=== PATIENT | male | born 1945 | race Caucasian/White ===

== ENCOUNTER → 2017-08-20 06:38 | Outpatient (CLI) | payer MEDICARE, SELFPAY ==
--- NOTE | 2017-08-20 06:43 | CT_ITS ---
STUDY: CT ABDOMEN WITH AND WITHOUT CONTRAST REASON FOR EXAM: Male, 72 years old. Renal cyst seen on prior MRI examination. RADIATION DOSAGE (If Supplied By Facility): CTDIvol = ( 15.6 ) mGy, DLP = ( 1580.15 ) mGycm TECHNIQUE: Transaxial images were obtained pre and post I.V. administration of 100 ml of Isovue 300, and without oral contrast. Sagittal and coronal images were reconstructed. Individualized dose optimization techniques were used for this CT. COMPARISON: None. FINDINGS: Minimal degree of dependent right basilar atelectasis. The visualized portions of the heart are within normal limits. There is decreased attenuation of the liver consistent with steatosis. Normal gallbladder and extrahepatic biliary system. Normal spleen. Normal pancreas. Normal bilateral adrenal glands. There is a 2 mm calculus in the upper pole of the right kidney. Tiny calculus in the mid lower poles of the right kidney. There is a 2.8 cm x 3.8 cm right parapelvic cyst. Punctate calculus in the mid lower pole of the left kidney. There is a 1.2 cm x 0.9 cm cyst in the posterior midportion of the left kidney. There is also evidence of a 3.9 cm x 3.9 cm cyst in the inferior portion of the left kidney. There is a small hiatal hernia. Normal small intestine. Normal colon. The appendix is visualized and appears normal. There is scattered atherosclerotic calcification of the abdominal aorta, without a demonstrated aneurysm. Normal inferior vena cava. Normal retroperitoneum. Normal abdominal wall. Grade 1 anterolisthesis of L5 on S1 with spondylolysis of the pars interarticularis of the L5 vertebrae as well as disc space narrowing and disc degeneration. CT/Abdomen W/WO IV Contrast IMPRESSION: Bilateral renal cysts. Small bilateral nonobstructive intrarenal calculi. Electronically Signed: Tommie Baez MD at 13:14 EDT Tel [phone], Service support ,
[2017-08-20 06:56] LABS: CREATININE FINGERSTICK < 0.6 mg/dL (0.70-1.30); EGFR FINGERSTICK > 60.0000 mL/min (>60)
== END ==
PROVIDERS: Family Provider Family Medicine; PCP Family Medicine; Visit Provider Family Medicine
DX: N28.1 Cyst of kidney, acquired (principal)
CPT/HCPCS: 74170; Q9967

== ENCOUNTER 2017-11-08 08:00 | Outpatient (RCR) | payer MEDICARE, SELFPAY ==
--- NOTE | 2017-10-02 12:41 | HP.PTEVAL ---
Patient's Visit Information CHELSI WOLF is a 72 year old M referred to Physical Therapy by SRINI CHAPA with a diagnosis of S/P LUMBAR DISECTOMY. Date of Evaluation: 10/02/17 Physical Therapist: Maximiliano Hastings, PT, - Visit Plan Frequency: 2x /Week Duration: 4 Weeks Plan: DLS,POSTURAL EX'S,LE FLAXABLITY,LE STRENGTHENING - Subjective Subjective: This 72 y/o male presents to physical therapy with s/p lumbar microdisectomy on August [address] Hightower at [facility]. Patient stated complication during surgery but was fixed.Patient d/c next day with brace and had pain in right leg lateral/anterior thigh.Patient had prior PT at [facility]. Seen DR HUGHES in 2weeks ,then recommended PT. Patient continues to have pain in leg anterior ache . C/O parathesia thigh. Symptoms are better since surgery. Symptoms worse with sitting 1 hour,walking ,standing,bending. Symptoms better with cold.Patient had prior MRI,. Bowel/bladder good. Coughing/sneezing good.Prior PT in past.Sleeping good at night.Patient stated Apr 2017 lifted batter ,alot pain 4 months ,tried chiropractor. VOCATION: ditlo. SOCIAL: - Pain Bilateral Back Pain Intensity (Out of 10): 2 Pain Intensity Range: 10 Right Lower Extremity Pain Intensity (Out of 10): 5 Pain Intensity Range: 10 Comment: anterior thigh - Objective POSTURE: mild foward. SKIN: incsion well approxiamte. GAIT: normal chika reciprocal pattern. NEURO: c/o parathesia /tingling right thigh ,light touch intact,reflexes 1/3 L3-4,L4-5,L5-S1. FLEXABLITY: hams min tight. MMT:quads/hams 4-/5,hip flexion 3/5 R,L 4/5 ,HIP flexion 4-/5,ankle 4/5. LUMBAR ROM: flexion mod loss,extension mod loss,side glides min/mod loss - Special Tests L/S Slump test left side: Negative L/S Slump test right side: Negative L/S Left Straight Leg Raise: Negative L/S Right Straight Leg Raise: Negative - Goals Goal 1:: Independant with HEP Goal Time Frame: 4-6 Weeks Goal 2:: Independant with postuture for ADL'S Goal Time Frame: 4-6 Weeks Goal 3:: Patient to decrease lumbar and right leg pain by 50% or greater to improve function with ADL'S Goal Time Frame: 4-6 Weeks Goal 4:: Patient to increase strength of right leg to 4/5 to improve function with walking and standing. Goal Time Frame: 4-6 Weeks Goal 5:: Patient to improve lumbar ROM for function of recovery Goal Time Frame: 4-6 Weeks Goal 6:: Patient be able to perfform ADL'S and housework tasks with min limitations. Goal Time Frame: 4-6 Weeks - Rehabilitation Potential Physical Therapy Diagnosis: This patient underwent s/p lumbar disectomy with decrease Lumbar ROM ,strength right leg,gait ,pain thus imapirs function and ADL'S Rehabilitation Potential: Good - Anticipated Interventions Patient/Client Instruction: Educate patient on: Condition For the Purpose of:: To decrease pain, To increase ROM, To improve muscle performance and motor function, To increase tolerance to activity/condition/position, To improve performance and independence with ADL's, To improve ability of physical actions for home/community/work/leisure, To improve gait and locomotor functions, To increase flexibility/ROM, To improve endurance, To foster healthy habits, To improve ability to perform tasks related to life management Therapeutic Exercise to Include: Strength training, Body mechanics, Postural training, Flexibilty training, Dynamic Lumbar Stabilization IF ES: Yes Cryotherapy (ice pack, ice massage): Yes Thermo therapy (hot pack): Yes For the Purpose of:: To decrease pain, To increase ROM, To improve nutrient delivery to tissue, To increase oxygenation perfusion, To improve health of tissue, To decrease soft tissue restriction Thank you for the opportunity to evaluate your patient. For Medicare and Medicare HMO plans, please review the plan of care and approve it. It will need to be FAXED BACK to us at [phone] for Medicare purposes. Please let me know if there are questions or concerns regarding this plan of care. Physician Signature: Date:
--- NOTE | 2018-01-13 15:26 | HP.PTDCSUM_ITS ---
HP - PT D/C Summary It has been my pleasure to treat CHELSI WOLF under orders from SRINI CHAPA , for the diagnosis of S/P LUMBAR DISECTOMY for a total of 4 visit(s). Discharge Date: Please see the following information for a summary of their discharge status. - Subjective Subjective: Pt with increased R groin and lateral thigh pain. He was shoveling gravel yesterday for about an hour and his soreness may be due to this. He completes HEP daily. - Pain Bilateral Back Pain Intensity (Out of 10): 0 Right Lower Extremity Pain Intensity (Out of 10): 4 - Objective Objective/Function: Pt with increased groin symptoms today. He did tolerate the exercises well and reported decreased pain following today's session. Briefly dicussed body mechanics today and would benefit from further demonstration regarding the topic. - Goals Goal 1:: Independant with HEP Goal 2:: Independant with postuture for ADL'S Goal 3:: Patient to decrease lumbar and right leg pain by 50% or greater to improve function with ADL'S Goal 4:: Patient to increase strength of right leg to 4/5 to improve function with walking and standing. Goal 5:: Patient to improve lumbar ROM for function of recovery Goal 6:: Patient be able to perfform ADL'S and housework tasks with min limitations. - Plan Plan: Contiune progressive core strengthening. Consider adding hip flexor stretch next. - D/C Information If there are questions or concerns regarding this patient's physical therapy, please feel free to call me at [phone]. Thank you for the referral of this patient. Sincerely, Maximiliano Hastings, PT,
== END 2017-11-08 19:00 | disposition home or self-care (01) ==
LOC: PT 08:00
PROVIDERS: Family Provider Family Medicine; PCP Family Medicine
DX: Z98.890 Other specified postprocedural states (principal)
CPT/HCPCS: 97110; 97162

== ENCOUNTER → 2019-12-14 07:04 | Outpatient (CLI) | payer MEDICARE, SELFPAY ==
[2019-12-08 09:27] LABS: Erythrocyte Sedimentation Rate 8 mm/hr (0-20)
[2019-12-08 09:48] LABS: Anion Gap 6 (5-15); BUN 17 mg/dL (7-18); BUN/Creat Ratio 18.9 RATIO (10-20); CRP < 2.90 mg/L (0.0-3.0); Calcium,Total 8.7 mg/dL (8.5-10.1); Chloride 104 mmol/L (98-107); EST Glomerular Filtration Rate 88 mL/min (>60); Est Glom Filt Rate - Afr Amer 106 mL/min (>60); Glucose 109 mg/dL (74-106); Sodium Level 139 mmol/L (136-145)
--- NOTE | 2019-12-14 07:08 | CT_ITS ---
STUDY: CT BRAIN WITH AND WITHOUT CONTRAST REASON FOR EXAM: Male, 74 years old. HEADACHES OFF/ON X 1 MONTH, SOME SINUS CONGESTION RADIATION DOSAGE (If Supplied By Facility): CTDIvol = ( 44.99 ) mGy, DLP = ( 1614.72 ) mGycm TECHNIQUE: Transaxial CT imaging of the brain was performed pre and post contrast administration. The examination was performed with intravenous administration of IV 50mL Isovue-370. Individualized dose optimization techniques were used for this CT. COMPARISON: None. FINDINGS: Normal soft tissue structures. Normal calvarium. Normal size ventricles and extra-axial spaces for the patient''s age. Normal white matter tracts of the cerebral hemispheres. Normal basal ganglia and thalami. Normal brainstem. Normal cerebellum. There is no intracranial hemorrhage. There are no findings of an acute ischemic infarction. There is a 1.2 cm x 1.6 cm mucosal polyp or retention cyst at the base of the right maxillary sinus. CT/Brain/Head W/WO Contrast IMPRESSION: Small retention cyst at the base of the right maxillary sinus Electronically Signed: Tommie Baez, at 9:47 EDT , Service support ,
== END ==
PROVIDERS: PCP Family Medicine; Referring Provider Otolaryngology; Visit Provider Otolaryngology
DX: M31.6 Other giant cell arteritis (principal); R51 Headache
CPT/HCPCS: 36415; 70470; 80048; 85652; 86140; Q9967

== ENCOUNTER → 2020-02-03 10:21 | Outpatient (CLI) | payer MEDICARE, SELFPAY ==
[2020-02-03 12:30] LABS: Erythrocyte Sedimentation Rate 3 mm/hr (0-20)
[2020-02-03 12:40] LABS: Absolute Lymphocyte Count 1.45 X10^3/uL (0.83-4.51); Absolute Neutrophil Count 3.7 X10^3/uL (2.0-7.7); Basophil# 0.03 X10^3/uL; Basophil% 0.5 % (0-1); Eosinophil# 0.05 X10^3/uL; Eosinophils% 0.9 % (0-5); Hematocrit 45.9 % (40-54); Hemoglobin 16.1 g/dL (13.0-16.5); Lymphocyte # 1.45 X10^3/ul (4.0); Lymphocyte % 25.8 % (19-41); Mean Corp Hgb Conc 35.1 g/dL (32-36); Mean Corpuscular Hgb 33.7 pg (27.0-32.0); Mean Platelet Vol. 11.1 fl (6.2-12.0); Monocyte# 0.39 X10^3/uL; Monocyte% 6.9 % (0-10); NRBC Flagged by Analyzer 0 % (0-5); Neutrophil # 3.68 X10^3/uL (2.7-7.7); Neutrophil % 65.5 % (47-70); Platelet Count 226 K/mm3 (150-450); RBC Distribution Width CV 11.9 % (11.6-14.6); RBC Distribution Width SD 41.5 fl (35.1-43.9); Red Blood Count 4.78 M/mm3 (4.6-6.2); White Blood Count 5.6 K/mm3 (4.4-11.0)
[2020-02-03 13:27] LABS: ALB/GLOB Ratio 1.1 RATIO (0.9-2.4); AST(SGOT) 22 U/L (15-37); Alanine Aminotransfer ALT/SGPT 35 U/L (16-61); Albumin, Serum 3.8 g/dL (3.2-5.0); Alkaline Phosphatase 62 U/L (45-117); Anion Gap 5 (5-15); BUN 12 mg/dL (7-18); BUN/Creat Ratio 13.6 RATIO (10-20); CRP < 2.90 mg/L (0.0-3.0); Calcium,Total 9.1 mg/dL (8.5-10.1); Chloride 105 mmol/L (98-107); Creatinine, Serum 0.88 mg/dL (0.70-1.30); EST Glomerular Filtration Rate 90 mL/min (>60); Est Glom Filt Rate - Afr Amer 109 mL/min (>60); Globulin 3.6 g/dL (2.2-4.2); Glucose 101 mg/dL (74-106); Potassium 4.1 mmol/L (3.5-5.1); Protein, Total 7.4 g/dL (6.4-8.2); Rheumatoid Factor < 10.0 IU/mL (<15); Sodium Level 139 mmol/L (136-145)
[2020-02-03 13:40] LABS: Hepatitis B Surface Antibody Non-Reactive; Hepatitis B Surface Antigen Non-Reactive (Nonreactive); Hepatitis C Antibody Non-Reactive (Nonreactive)
[2020-02-04 16:08] LABS: SJOGREN'S Anti-SS-A test < 0.2 AI (0.0-0.9); SJOGREN'S Anti-SS-B test 0.2 AI (0.0-0.9)
[2020-02-04 16:21] LABS: ANTINUCLEAR ANTIBODIES DIRECT Negative (Negative)
[2020-02-05 13:11] LABS: CCP IgG Antibodies 4 units (0-19); Hepatitis B Core AB IgM Negative (Negative)
== END ==
PROVIDERS: PCP Family Medicine; Referring Provider Internal Medicine Rheumatology; Visit Provider Internal Medicine Rheumatology
DX: M31.6 Other giant cell arteritis (principal); M06.4 Inflammatory polyarthropathy; M35.01 Sjogren syndrome with keratoconjunctivitis; K21.9 Gastro-esophageal reflux disease without esophagitis; E78.5 Hyperlipidemia, unspecified
CPT/HCPCS: 36415; 80053; 85025; 85652; 86038; 86140; 86200; 86235; 86431; 86705; 86706; 86803; 87340

== ENCOUNTER 2020-02-08 07:04 | Day surgery (SDC) | payer MEDICARE, SELFPAY ==
--- NOTE | 2020-02-04 10:37 | EKG12_ITS ---
Test Reason : PRE OP Blood Pressure : / mmHG Vent. Rate : 077 BPM Atrial Rate : 077 BPM P-R Int : 152 ms QRS Dur : 092 ms QT Int : 422 ms P-R-T Axes : 065 036 043 degrees QTc Int : 477 ms Normal sinus rhythm Normal ECG Confirmed by EVERETTE JARRETT, SOUMYA ([id number]), material expeditor RAZA NARVAEZ ([id number]) on 02/05/2020 11:37:54 A M Referred By: Alexander Stovall Confirmed By:CHRISTIANO GAVIRIA MD
--- NOTE | 2020-02-08 | TEM_PTH ---
PATIENT: CHELSI [place] [facility] [id number] AGE/SX: 74/M ROOM: RE02/08/[address]: Dr. Alexander Stovall MD : 1945 BED: DIS: 02/08/2020 SPEC #: [id number] RECD: 02/08/20 10:57 STATUS: GARETH REVeronika #: [id number] ANNABEL: 02/08/20 00:[address]: Alexander Stovall DEPT: SURGICAL PATHOLOGY RECD BY: Justen Espinosa ENTERED: 02/08/20 10:58 SP TYPE: TEMPORAL OTHR DR: MD Dr. Tanvi Mliler MD Dr. William Lago, MD Tissues: Temporal region Procedures: Elastin Stain (control) Special Stain Group II Surgery Specimen Level IV HEADER OPERATION: Temporal artery biopsy PRE-OP DIAGNOSIS: Temporal arteritis TISSUE SUBMITTED: Right temporal artery MICROSCOPIC DIAGNOSIS Right temporal artery, biopsy: Negative for giant cell arteritis. Mild intimal hyperplasia noted. RANDY:roxana 02/09/20 COMMENT Elastin stain with matched control is used in the evaluation of the specimen. MICROSCOPIC DESCRIPTION Slides are reviewed. GROSS DESCRIPTION Received in fixative is one container labeled with the patient's name and designated right temporal artery. The specimen consists of a tubular piece of gibbs-pink soft tissue measuring 2 cm in length and 0.2 cm in diameter. A metallic staple is also noted. The entire specimen is submitted in one cassette. It will be sectioned at the time of embedding. / RANDY:roxana 02/08/20 TC:5 CPT: 72767, 79640
[2020-02-08 07:32] VITALS: BP 148/90; PULSE 63; RESP 16; TEMP 36.4; O2SAT 97; BMI 27.8
[2020-02-08] MEDS: Lactated Ringers 1,000 ML 100 ML IV (07:49)
--- NOTE | 2020-02-08 08:49 | PCM.HP.BLA ---
Problem List (1) Temporal arteritis Status: Acute History and Physical Date of Admission: 02/08/20 Intake Visit Reasons: Temporal artery Allergies Penicillins Allergy (Mild, Verified 02/04/20 09:13) Unknown Medications atorvastatin 10 mg tablet 10 mg PO DAILY 02/04/20 [History Confirmed 02/04/20] fluticasone 250 mcg-salmeterol 50 mcg/dose blistr powdr for inhalation 1 inh INHALATION BID 02/04/20 [History Confirmed 02/04/20] prednisone 10 mg tablet 10 mg PO DAILY 02/04/20 [History Confirmed 02/04/20] sildenafil 25 mg tablet 25 mg PO DAILY PRN 02/04/20 [History Confirmed 02/04/20] [facility] Medical History (Updated 02/04/20 @ 09:[address] Alexander Stovall MD) Temporal arteritis (Acute) Asthma (Acute) High cholesterol (Acute) Surgical History (Updated 02/04/20 @ 09:12 by Joya Arceo) Previous back surgery (Acute) S/P eye surgery (Acute) S/P hernia repair (Acute) Family History (Updated 02/04/20 @ 09:12 by Joya Arceo) Father Cancer esophageal Social History (Updated 02/04/20 @ 09:[address] Alexander Stovall MD) Smoking Status: Never smoker alcohol intake: current alcohol intake frequency: a few times a month HPI HPI HPI: CHELSI WOLF, is a 74 M who presents to the office today for surgical consultation regarding temporal artery biopsy. The patient is referred by Dr. Jose Roberto Ontiveros and a written copy my surgical consult recommendations will return to him. By report the patient at least for a month has had intermittent headaches. A CT of the brain as as noted below. No acute findings. The patient also is referred by Dr. Noel and his primary care physicians Dr. Dunn. He states that for 3 months now he has had a right-sided headache. States he was concerned about possible temporal arteritis and he was referred to rheumatology. He was placed on a course of prednisone which improved the right temporal pain. Then as medication sees he had recurrence of the discomfort. He has been seen by report by ophthalmology demonstrating a slight difference in vision right eye compared to the left but not with a field cut. December 14, 2019 [facility] Imaging Services [address] [place] [address] Brain/Head W/WO Contrast MR#: [id number]:[id number] Name: CHELSI WOLF #:[id number] : 1945M 74 From: Tommie Baez MD PCP:Dr. Simba Dunn MD Status:REG CLI Study:Brain/Head W/WO Contrast Date of Exam:12/14/19 Exam#[id number] Ordering Dr: Jose Roberto Ontiveros MD STUDY: CT BRAIN WITH AND WITHOUT CONTRAST REASON FOR EXAM: Male, 74 years old. HEADACHES OFF/ON X 1 MONTH, SOME SINUS CONGESTION RADIATION DOSAGE (If Supplied By Facility): CTDIvol = ( 44.99 ) mGy, DLP = ( 1614.72 ) mGycm TECHNIQUE: Transaxial CT imaging of the brain was performed pre and post contrast administration. The examination was performed with intravenous administration of IV 50mL Isovue-370. Individualized dose optimization techniques were used for this CT. COMPARISON: None. FINDINGS: Normal soft tissue structures. Normal calvarium. Normal size ventricles and extra-axial spaces for the patient''s age. Normal white matter tracts of the cerebral hemispheres. Normal basal ganglia and thalami. Normal brainstem. Normal cerebellum. There is no intracranial hemorrhage. There are no findings of an acute ischemic infarction. There is a 1.2 cm x 1.6 cm mucosal polyp or retention cyst at the base of the right maxillary sinus. CT/Brain/Head W/WO Contrast IMPRESSION: Small retention cyst at the base of the right maxillary sinus Electronically Signed: Tommie Baez, at 9:47 EDT , Service support , HPI HPI HPI: CHELSI WOLF, is a 74 M who presents to the office today for Exam Const General: cooperative, healthy appearing Nutritional Appearance: average body habitus Orientation: alert [facility] Head: normal to inspection Other: Bilateral temporal arteries are approximately 2+. They appear to be symmetric. No focal tenderness. No erythema. No particular ropey feel. Chest Chest palpation & inspection: normal inspection of the chest Resp Effort & Inspection: normal respiratory effort Auscultation: clear to auscultation bilaterally Cardio Rate: regular rate Rhythm: regular rhythm Extrem General: no calf tenderness Psych Affect: normal affect Assessment & Plan Problems 1. Temporal arteritis M31.6 Plan The patient is referred for a right temporal artery biopsy and I have discussed with the patient and his the technique, benefit, risk, alternatives. He has had an opportunity to ask and have questions answered. He did inquire about the potential for carotid artery disease. I am not detecting any carotid bruits. I suggested to him that he may consider a duplex screening examination of the carotids aorta and lower extremities. He demonstrated interest in week provided him contact information. He has had an opportunity to ask and have questions answered. We will schedule and expedite his treatment. I appreciate the opportunity of assisting with his surgical care. Copy: Dr. Jose Roberto Ontiveros and Dr.Padman Noel and Dr. Simba Stovall M.D., F.A.C.S. Orders Orders: Comprehensive Metabolic Profil Today M31.6, Z01.818 12 Lead EKG Today M31.6, Z01.818 CBC-Complete Blood Cnt No Diff Today M31.6, Z01.818 Coding Level of Care Code 99150 Diagnoses Temporal arteritis M31.6 I have re-examined the patient. There are no clinical changes since date of exam.
--- NOTE | 2020-02-08 09:10 | DCINST_ITS ---
Discharge Diet: Light diet - advance as tolerated - if you have questions about your diet instructions, please talk to you doctor. Discharge Activity: May Not Drive - for 1 day or while taking narcotic pain medicine. May shower in (days): 1 Lifting Restrictions: 10 pounds Call your doctor if your incision/area has: Continuous Slow Oozing, Sudden Increased Bleeding, Increased Pain/ Swelling, Increased Redness, Foul Smelling Discharge Call your doctor if you observe: Fever of 101 or Higher Suture Line Care: Avoid Pulling/Pushing, Avoid Pinching/Bending Additional Dressing/Incision Instructions:: You may remove the tape and gauze dressing tomorrow and you may shower tomorrow (Saturday). The surgical glue will gradually wear off in a week or so Allergies/Adverse Reactions: Allergies Penicillins Allergy (Mild, Verified 02/08/20 07:30) Unknown Medications to take at Discharge atorvastatin 10 mg tablet 10 mg PO DAILY 02/04/20 fluticasone 250 mcg-salmeterol 50 mcg/dose blistr powdr for inhalation 1 inh INHALATION BID 02/04/20 prednisone 10 mg tablet 10 mg PO DAILY 02/04/20 sildenafil 25 mg tablet 25 mg PO DAILY PRN 02/04/20 Omeprazole [Prilosec] 20 mg PO DAILY PRN 02/05/20 Primary Care Physician: Simba Dunn MD [Primary Care Provider] - Test Results: Test results from this visit will be discussed in further detail at your follow- up appointment, if applicable. Please Follow Up With: Alexander Stovall MD - [phone] When: Call office with concerns
[2020-02-08] MEDS: Bupivacaine Mpf 0.5% 30 ML VIAL (09:32)
--- NOTE | 2020-02-08 09:49 | PCM.OPRPT ---
Problem List (1) Temporal arteritis Status: Acute Report of Operation Date of Procedure: 02/08/20 Pre-Operative Diagnosis: Right temporal arteritis Post-Operative Diagnosis: Pathology pending Surgery/Procedure Performed:: Right temporal artery biopsy Description of Surgical Findings:: Timeout and informed consent was obtained. 74-year-old gentleman was taken to the operating place upon the table underwent monitored anesthesia care. The right preauricular area was sterilely prepped and draped. 1% lidocaine mixed 50-50 with 0.5% Marcaine was used as a local anesthetic. Throughout the procedure total of 8 cc was used. The artery was identified it was inked marked local was instilled a longitudinal incision was created tedious sharp dissection was used to identify the artery. Clinically it appeared to be normal. It was carefully dissected free. It was quite tortuous. I felt that I had approximately 4 cm in total length. Side branches secured with hemoclips were indicated. The artery was then secured proximally and distally with 4-0 Vicryl ligatures. Segment was excised and submitted immediately in formalin. Hemostasis was intact. The subdermal tissues approximated with a running subicular 5-0 Vicryl. Dermabond was applied followed by tape and Telfa dressing. Counts were correct. Blood loss minimal. The patient tolerated the procedure well and was taken to the recovery area in satisfactory condition without apparent complication Specimens right temporal artery. Drains none. Blood loss minimal. Alexander Stovall M.D., F.A.C.S. Type of Anesthesia:: Local MAC Anesthesiologist: Christine Monteiro
[2020-02-08 09:57] VITALS: BP 147/81; BP 148/90; PULSE 80; RESP 16; TEMP 36.6; O2SAT 95
[2020-02-08 10:05] VITALS: BP 133/87; BP 148/90; PULSE 75; RESP 16; O2SAT 96
[2020-02-08 10:10] VITALS: BP 132/86; BP 148/90; PULSE 83; RESP 16; O2SAT 96
[2020-02-08 10:15] VITALS: BP 146/88; BP 148/90; PULSE 64; RESP 16; TEMP 36.1; O2SAT 96
[2020-02-08 11:15] VITALS: BP 125/74; BP 148/90; PULSE 66; RESP 16; TEMP 36.6; O2SAT 97
== END 2020-02-08 11:27 | disposition home or self-care (01) ==
LOC: SDC 07:05 → AC 07:06
PROVIDERS: PCP Family Medicine; Referring Provider Surgery; Visit Provider Surgery
PROC: (CPT 37609; principal; 2020-02-08 08:45)
DX: M31.6 Other giant cell arteritis (principal); Z79.51 Long term (current) use of inhaled steroids; Z88.0 Allergy status to penicillin
CPT/HCPCS: 00352; 37609; 87635; 88305; 88313; 93005; 94799; J7120; J2405; U0003

== ENCOUNTER → 2021-04-07 07:53 | Outpatient (CLI) | payer MEDICARE, SELFPAY ==
--- NOTE | 2021-04-07 07:58 | CDU_ITS ---
Reason For Study: Carotid stenosis Rt. Velocities/BP Lt. Velocities/BP Prox CCA 106/14.7 cm/sec. Prox CCA 107.2/18.8 cm/sec. Mid CCA 94.3/13.4 cm/sec. Mid CCA 70.4/15.1 cm/sec. Dist CCA 70.8/14.7 cm/sec. Dist CCA 71.6/15.1 cm/sec. Prox ICA 52.6/12.13 cm/sec. Prox ICA 41.9/12.6 cm/sec. Mid ICA 66.9/18.6 cm/sec. Mid ICA 48.5/13.5 cm/sec. Dist ICA 63/17.3 cm/sec. Dist ICA 68.3/23 cm/sec. Rt. ICA/CCA = 0.71. Lt. ICA/CCA = 0.95. Prox ECA 85.2/8.2 cm/sec. Prox ECA 65.5/5.3 cm/sec. Rt. Vert. 38.6/9.9 cm/sec. Lt. Vert. 40.4/9.9 cm/sec. Right Extracranial There is homogeneous, smooth atherosclerotic plaque noted in the right common carotid artery. There is heterogeneous, irregular atherosclerotic plaque noted in the right internal carotid artery. There is intimal thickening but no significant atherosclerotic plaque noted in the right external carotid artery. Antegrade flow is noted in the right vertebral artery. Left Extracranial There is heterogeneous, irregular atherosclerotic plaque noted in the left common carotid artery. There is heterogeneous, irregular atherosclerotic plaque noted in the left internal carotid artery. The atherosclerotic plaque causes acoustic shadowing. There is intimal thickening but no significant atherosclerotic plaque noted in the left external carotid artery. Antegrade flow is noted in the left vertebral artery. Procedure Carotid Duplex 70576. This is a Carotid Duplex examination using B-mode, color flow and specral Doppler. Exam performed in department. VL/Carotid Duplex Ultrasound Interpretation Summary Irregular calcific plaque at the proximal right internal carotid artery with le ss than 50% stenosis Less than 50% stenosis right external carotid artery Irregular calcific plaque at the proximal left internal carotid artery with les s than 50% stenosis Less than 50% stenosis left external carotid artery Patent antegrade vertebral arteries bilaterally Findings appear similar to blood flow screening of April 05, 2020 Ordering Physician: Alexander Stovall Referring Physician: Simba Dunn Performed By: Isabel Owens RVT
== END ==
PROVIDERS: PCP Family Medicine; Referring Provider Surgery; Visit Provider Surgery
DX: I65.23 Occlusion and stenosis of bilateral carotid arteries (principal)
CPT/HCPCS: 93880

== ENCOUNTER → 2023-08-14 | Outpatient (CLI) | payer MEDICARE, SELFPAY ==
--- NOTE | 2023-08-14 07:55 | CDU_ITS ---
Reason For Study: Carotid stenosis Rt. Velocities/BP Lt. Velocities/BP Prox CCA 108.4/20 cm/sec. Prox CCA 108.4/22.5 cm/sec. Mid CCA 85.1/18.8 cm/sec. Mid CCA 87.6/16.3 cm/sec. Dist CCA 66.7/12.6 cm/sec. Dist CCA 75.3/18.8 cm/sec. Prox ICA 44.7/10.7 cm/sec. Prox ICA 50.7/16.3 cm/sec. Mid ICA 49.3/17.1 cm/sec. Mid ICA 46.6/18.2 cm/sec. Dist ICA 75.9/24.8 cm/sec. Dist ICA 64.5/20.1 cm/sec. Rt. ICA/CCA = 0.89. Lt. ICA/CCA = 0.74. Prox ECA 97.4/13.9 cm/sec. Prox ECA 94.9/12.6 cm/sec. Rt. Vert. 42.8/10.7 cm/sec. Lt. Vert. 49.4/17.3 cm/sec. Right Extracranial There is homogeneous, smooth atherosclerotic plaque noted in the right common carotid artery. There is heterogeneous, irregular atherosclerotic plaque noted in the right internal carotid artery. There is heterogeneous, irregular atherosclerotic plaque noted in the right external carotid artery. Antegrade flow is noted in the right vertebral artery. Left Extracranial There is heterogeneous, irregular atherosclerotic plaque noted in the left common carotid artery. There is heterogeneous, irregular atherosclerotic plaque noted in the left internal carotid artery. There is homogeneous, smooth atherosclerotic plaque noted in the left external carotid artery. Antegrade flow is noted in the left vertebral artery. Procedure Carotid Duplex 09389. This is a Carotid Duplex examination using B-mode, color flow and specral Doppler. Exam performed in department. VL/Carotid Duplex Ultrasound Interpretation Summary Irregular calcific plaque with mild shadowing at the proximal right internal ca rotid artery with less than 50% stenosis Less than 50% stenosis right external carotid artery More extensive irregular calcific plaque with shadowing at the proximal left in ternal carotid artery with less than 50% stenosis Less than 50% stenosis left external carotid artery Patent and antegrade vertebral arteries bilaterally Findings appear similar to the previous examination of April 07, 2021 Ordering Physician: Alexander Stovall Referring Physician: Simba Dunn Performed By: Isabel Owens RVT
--- OUTSIDE RECORDS SUMMARY | 2023-08-14 08:15 | XMS RPT_ITS | CCD ---
Author Name Unknown Address [address] [facility] [address] [place] [id number] Organization [facility] Care Team Providers Care Maintenance Controller Name Role Phone Daniela Dunn MD Primary Care Provider DANIELA DUNN Primary Care Unavailable LOUISE DE LA O Referring Unavailable DANIELA DUNN Primary Care Unavailable LOUISE DE LA O Referring Unavailable DANIELA DUNN Primary Care Unavailable LOUISE DE LA O Attending Unavailable DANIELA DUNN Primary Care Unavailable DANIELA DUNN Primary Care Unavailable KAYKAY MILLER Referring Unavailable DANIELA DUNN Primary Care Unavailable DANIELA DUNN Primary Care Unavailable DANIELA DUNN Primary Care Unavailable LOUISE DE LA O Attending Unavailable Daniela Dunn MD Primary Care Provider Allergies Allergy Classification Reported Allergen(s) Allergy Type Date of Onset Reaction(s) Facility (3 sources) Penicillins; Translations: [PENICILLINS] Propensity to adverse reactions to drug 07-09-2005 [facility] Work Phone: (17 sources) Simvastatin; Translations: [SIMVASTATIN] Drug Allergy 07-02-2011 Intolerance [facility] Work Phone: (14 sources) Penicillins Propensity to adverse reactions to drug 07-09-2005 [facility] Work Phone: Medications Current Medications Medication Drug Class(es) Dates Sig (Normalized) Sig (Original) mupirocin 0.02 mg/mg topical ointment (10 sources) RNA Synthetase Inhibitor Antibacterial Start: 12-29-2018 End: 12-08-2022 mupirocin (BACTROBAN) 2 % ointment Apply 1 application to affected area three times daily for 10 days. 30 g 0 11/28/2022 12/08/2022 Active Completed/Discontinued Medications Medication Drug Class(es) Dates Sig (Normalized) Sig (Original) [id number] actuat albuterol 0.09 mg/actuat metered dose inhaler (1 source) beta2-Adrenergic Agonist Start: 06-25-2023 take 2 puff(s) by inhalation every six hours as needed albuterol HFA (PROAIR HFA) 90 mcg/actuation inhaler Inhale 2 Puffs as instructed every 6 hours as needed. 1 Each 0 06/25/2023 Active Problems Active Problems Problem Classification Problem Date Documented Date Episodic/Chronic Acquired foot deformities (1 source) Acquired hallux limitus of right great toe; Translations: [Other deformities of toe(s) (acquired), right foot] Episodic Asthma (17 sources) Asthma; Translations: [Unspecified asthma, uncomplicated] Onset: 08-20-2007 08-04-2015 Chronic Disorders of lipid metabolism (20 sources) Mixed hyperlipidemia; Translations: [Mixed hyperlipidemia] Onset: 08-06-2005 Chronic Esophageal disorders (20 sources) Gastroesophageal reflux disease; Translations: [Gastro-esophageal reflux disease without esophagitis] Onset: 08-20-2007 08-20-2007 Chronic Gout and other crystal arthropathies (1 source) Gouty arthritis of toe; Translations: [Gout, unspecified] Chronic Occlusion or stenosis of precerebral arteries (16 sources) Bilateral stenosis of carotid arteries; Translations: [Occlusion and stenosis of bilateral carotid arteries] Onset: 04-06-2020 04-06-2020 Chronic Other connective tissue disease (4 sources) Pain in right foot; Translations: [Pain in right foot] Episodic Other connective tissue disease (1 source) Pain in buttock; Translations: [Myalgia, other site] 01-16-2023 Episodic Other male genital disorders (18 sources) Secondary erectile dysfunction; Translations: [Male erectile dysfunction, unspecified] Onset: 08-06-2005 08-06-2005 Chronic Other male genital disorders (1 source) Male erectile dysfunction, unspecified; Translations: [ED (erectile dysfunction) of organic origin] Onset: 12-19-2022 Chronic Superficial injury; contusion (1 source) Abrasion of left hand, initial encounter; Translations: [Abrasion or friction burn of hand(s) except finger(s) alone, without mention of infection] Episodic Systemic lupus erythematosus and connective tissue disorders (16 sources) Temporal arteritis; Translations: [Other giant cell arteritis] Onset: 04-12-2021 04-12-2021 Chronic Unclassified (1 source) Acute cough; Translations: [Acute cough] Onset: 06-25-2023 Past or Other Problems Problem Classification Problem Date Documented Da te Episodic/Chronic Diabetes mellitus without complication (20 sources) Prediabetes; Translations: [Prediabetes] Onset: 12-15-2009 Episodic Esophageal disorders (16 sources) Esophagitis; Translations: [Esophagitis, unspecified] Onset: 02-28-2012 02-28-2012 Episodic Genitourinary symptoms and ill-defined conditions (1 source) Frequency of micturition; Translations: [Increased frequency of urination] Onset: 12-19-2022 Episodic Other connective tissue disease (1 source) Myalgia, other site; Translations: [Buttock pain] Onset: 12-19-2022 Episodic Other diseases of kidney and ureters (16 sources) Cyst of kidney; Translations: [Cyst of kidney, acquired] Onset: 08-20-2017 10-02-2017 Episodic Other non-epithelial cancer of skin (16 sources) Squamous cell carcinoma of skin of face; Translations: [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] Onset: 04-12-2021 04-12-2021 Episodic Residual codes; unclassified (16 sources) Family history of diabetes mellitus; Translations: [Family history of diabetes mellitus] Onset: 03-27-2008 03-27-2008 Episodic Residual codes; unclassified (16 sources) Family history of cancer of the esophagus; Translations: [Family history of malignant neoplasm of digestive organs] Onset: 12-10-2011 12-10-2011 Episodic Spondylosis; intervertebral disc disorders; other back problems (20 sources) Low back pain; Translations: [Lumbago] Onset: 03-06-2006 12-15-2009 Episodic Results Test Name Value Interpretation Reference Range Facil ity Vital Signs Date Time Vital Sign Value Performing Clinician Maria L dawson 01-16-2023 08:13-0400 Diastolic blood pressure 80 mm[Hg] Louise De La O APRN.CNP Work Phone: [facility] 01-16-2023 08:13-0400 Heart rate 70 /min Louise De La O APRN.CNP Work Phone: [facility] 01-16-2023 08:13-0400 Respiratory rate 16 /min Louise Haagen SR. OPERATIONS MANAGER.POLYMERIZATION KETTLE OPERATOR Work Phone: [facility] 01-16-2023 08:13-0400 SaO2% (BldA) [Mass fraction] 93 % Louise Haagen SR. OPERATIONS MANAGER.POLYMERIZATION KETTLE OPERATOR Work Phone: [facility] 01-16-2023 08:13-0400 Systolic blood pressure 126 mm[Hg] Louise Haagen SR. OPERATIONS MANAGER.POLYMERIZATION KETTLE OPERATOR Work Phone: [facility] 11-28-2022 16:35-0400 Body temperature 97.9 [degF] Callie Billie SR. OPERATIONS MANAGER.POLYMERIZATION KETTLE OPERATOR Work Phone: [facility] 11-28-2022 16:35-0400 Body weight 79.38 kg Callie Billie SR. OPERATIONS MANAGER.POLYMERIZATION KETTLE OPERATOR Work Phone: [facility] 11-28-2022 16:35-0400 Diastolic blood pressure 80 mm[Hg] Callie Billie SR. OPERATIONS MANAGER.POLYMERIZATION KETTLE OPERATOR Work Phone: [facility] 11-28-2022 16:35-0400 Heart rate 90 /min Callie Billie SR. OPERATIONS MANAGER.POLYMERIZATION KETTLE OPERATOR Work Phone: [facility] 11-28-2022 16:35-0400 Respiratory rate 21 /min Callie Billie SR. OPERATIONS MANAGER.POLYMERIZATION KETTLE OPERATOR Work Phone: [facility] 11-28-2022 16:35-0400 SaO2% (BldA) [Mass fraction] 97 % Callie Billie SR. OPERATIONS MANAGER.POLYMERIZATION KETTLE OPERATOR Work Phone: [facility] 11-28-2022 16:35-0400 Systolic blood pressure 136 mm[Hg] Callie Billie SR. OPERATIONS MANAGER.POLYMERIZATION KETTLE OPERATOR Work Phone: [facility] 10-11-2021 11:35-0400 Body temperature 97 [degF] Louise Haagen SR. OPERATIONS MANAGER.POLYMERIZATION KETTLE OPERATOR Work Phone: [facility] 10-11-2021 11:35-0400 Body weight 77.56 kg Louise Haagen SR. OPERATIONS MANAGER.POLYMERIZATION KETTLE OPERATOR Work Phone: [facility] 10-11-2021 11:35-0400 Diastolic blood pressure 72 mm[Hg] Louise De La O SR. OPERATIONS MANAGER.POLYMERIZATION KETTLE OPERATOR Work Phone: [facility] 10-11-2021 11:35-0400 Heart rate 68 /min Louise De La O SR. OPERATIONS MANAGER.POLYMERIZATION KETTLE OPERATOR Work Phone: [facility] 10-11-2021 11:35-0400 Respiratory rate 18 /min Louise De La O SR. OPERATIONS MANAGER.POLYMERIZATION KETTLE OPERATOR Work Phone: [facility] 10-11-2021 11:35-0400 Systolic blood pressure 102 mm[Hg] Louise De La O SR. OPERATIONS MANAGER.POLYMERIZATION KETTLE OPERATOR Work Phone: [facility] Encounters Encounter Date Encounter Type Care Provider Facility Start: 08-12-2023 ambulatory Aletha Noel MA [facility] Procedures Date Procedure Procedure Detail Performing Clinician Start: 12-19-2022 Lipid 1996 panel - S suresh or Plasma Daniela Dunn MD Work Phone: Start: 05-26-2021 Colonoscopy Louise padilla SR. OPERATIONS MANAGER.POLYMERIZATION KETTLE OPERATOR Work Phone: Start: 04-12-2021 Adult depression scr eening assessment Louise De La O SR. OPERATIONS MANAGER.POLYMERIZATION KETTLE OPERATOR Work Phone: Plan of Treatment Date Care Activity Detail Author Start: 05-26-2031 Colonoscopy COLONOSCOPY [facility] Start: 05-26-2031 COLORECTAL CANCER SCREENING COLORECTAL CANCER SCREENING [facility] Start: 12-20-2027 Lipid 1996 panel - S suresh or Plasma Lipid Screening [facility] Start: 12-20-2027 LIPID SCREEN LIPID SCREEN [facility] Start: 10-11-2026 LIPID SCREEN LIPID SCREEN [facility] Start: 04-05-2026 LIPID SCREEN LIPID SCREEN [facility] Start: 12-19-2025 DIABETES SCREEN DIABETES SCREEN [facility] Start: 12-19-2025 Diabetes Screening Diabetes Screenin g [facility] Start: 10-11-2024 DIABETES SCREEN DIABETES SCREEN [facility] Start: 04-05-2024 DIABETES SCREEN DIABETES SCREEN [facility] Start: 01-17-2024 ANNUAL PCP TEAM INSPECTING ENGINEER TYESHA DISEASE VISIT ANNUAL PCP TEAM CHRONIC DISEASE VISIT [facility] Start: 12-20-2023 ANNUAL PCP TEAM INSPECTING ENGINEER TYESHA DISEASE VISIT ANNUAL PCP TEAM CHRONIC DISEASE VISIT [facility] Start: 12-20-2023 COVID-19 VACCINE (4 - Moderna series) COVID-19 VACCINE (4 - Moderna series) [facility] Immunizations Immunization Date Immunization Notes Care Provider Hamida mercado 09-05-2020 COVID-19 vaccine, fu ll dose (MODERNA) Louise Haagen SR. OPERATIONS MANAGER.POLYMERIZATION KETTLE OPERATOR Work Phone: [facility] 08-08-2020 COVID-19 vaccine, fu ll dose (MODERNA) Louise Haagen SR. OPERATIONS MANAGER.POLYMERIZATION KETTLE OPERATOR Work Phone: [facility] 05-22-2018 influenza virus vacc ine, unspecified formulation Daneila Dunn MD Work Phone: [facility] 05-13-2014 pneumococcal polysaccharide vaccine, 23 valent Louise Haagen SR. OPERATIONS MANAGER.POLYMERIZATION KETTLE OPERATOR Work Phone: [facility] 08-28-2007 pneumococcal conjuga te vaccine, 7 valent Louise Haagen SR. OPERATIONS MANAGER.POLYMERIZATION KETTLE OPERATOR Work Phone: [facility] 08-28-2007 pneumococcal polysaccharide vaccine, 23 valent Louise Haagen SR. OPERATIONS MANAGER.POLYMERIZATION KETTLE OPERATOR Work Phone: [facility] Work Phone: 08-08-2004 diphtheria and tetan us toxoids, adsorbed for pediatric use Louise Haagen SR. OPERATIONS MANAGER.POLYMERIZATION KETTLE OPERATOR Work Phone: [facility] Work Phone: 06-13-1994 diphtheria and tetan us toxoids, adsorbed for pediatric use Louise Haagen SR. OPERATIONS MANAGER.POLYMERIZATION KETTLE OPERATOR Work Phone: [facility] Work Phone: Payers Date Payer Category Payer Medicare [facility] MEDICARE [facility] MEDICARE ADVANTAGE PPO [id number] 2020-Present [phone] [address] [address] [place] [address] PPO [id number] 2020 Medicare [facility] MEDICARE [facility] MEDICARE ADVANTAGE PPO [id number] 2020-Present [phone] [address] [address] [place] [address] PPO [id number] 2020 Medicare [id number] Social History Date Type Detail Facility Start: 08-04-2015 Tobacco smoking stat us NHIS Never smoked tobacco [facility] Start: 10-11-2021 End: 06-25-2023 Alcohol intake Current drinker of alcohol (finding) [facility] Start: 1945 Sex Assigned At Not on file C [facility] Start: 10-01-2021 End: 12-06-2021 Exposure to SARS-CoV-2 (event) Not sure [facility] Start: 08-04-2015 Tobacco use and exposure Smoke less tobacco non-user [facility] Start: 12-19-2022 End: 06-25-2023 History of Social function [facility] Start: 12-19-2022 End: 06-25-2023 Tobacco use panel [facility] National Score (1-10 0), lower number is lower risk 53 [facility] Clinical Notes 10-11-2021 to 08-12-2023 Aletha Noel MA - 08/12/2023 9:21 AM ESTTelephone Encounter - Trinity Silver MA - 05/20/2023 4:34 PM ESTTelephone Encounter - Genesis Jiang - 05/20/2023 3:23 PM EST Note Date & Type Note Facility 08-12-2023 History of Present illness Narrative POPULATION HEALTH NAVIGATION OUTREACH Action/FYI LVM ANNUAL MEDICARE WELLNESS EXAM INFLUENZA Reason for Outreach Care Gap/HCC or Scheduling Wellness Visits Care Gaps due: Medicare Annual Wellness Visit Flu Vaccine Patient Contacted: Unable to reach patient: Left message Navigation Signature: Aletha Noel MA August 12, 2023 9:21 AM documented in this encounter [facility] 07-10-2023 Note Patient Outreach (NE TNAV) ROBBIN BOLTON ([id number]) 1945 M Date Time Provider Department 07/10/23 SHANNA VAZQUEZ During your visit today, we recorded the following information about you: Shanna Vazquez RN 07/10/2023 5:58 AM Signed ACM JOHNNY RN Reason for review or outreach: Medication Adherence review per request of payer Medication Adherence Review Details: Other Suspect Conditions FYI / ACTION REQUEST: RA AND INFLAMMATORY CONNECTIVE TISSUE DISEASE ICD10: M316: Other giant cell arteritis Patient identified by name and date of Summary/Findings of review: As per above Patient is adherent with meds and is already assessed and diagnosed Patient Attributed To: E Payer: [facility] Action Taken: Data submitted to Payer Contact made with patient: No, Chart review only. Signature: Shanna Vazquez RN Allergies As of Date: 07/10/2023 Noted Allergy Reaction PENICILLINS 07/09/2005 2 - Rash ZOCOR (SIMVASTATIN) 07/02/2011 5 - Intolerance Comments: Achy all over -- does fine with Lipitor Date Reviewed: 06/25/2023 Reviewed by: Annette Jean Baptiste - Fully Assessed Reason for Visit: ACM JOHNNY RN [[id number]] Cmt: Medication Adherence and Suspect Conditions review per request of payer Prescriptions as of 07/10/2023 - albuterol HFA (PROAIR HFA) 90 mcg/actuation inhaler Inhale 2 Puffs as instructed every 6 hours as needed. - benzonatate (TESSALON PERLES) 100 mg capsule Take 2 capsules by mouth three times a day as needed. - atorvastatin (LIPITOR) 20 mg tablet Take 1 tablet by mouth once daily. - omeprazole (PRILOSEC) 20 mg capsule TAKE ONE CAPSULE BY MOUTH EVERY DAY 1/2 HOUR BEFORE BREAKFAST - fluticasone-salmeterol (ADVAIR DISKUS) 100-50 mcg/dose inhaler Inhale 1 Puff as instructed twice daily. RINSE AND GARGLE MOUTH WITH WATER AFTER EACH USE. - Tadalafil (CIALIS) 20 mg tab(s) Take 1 tablet by mouth once daily as needed. - tamsulosin (FLOMAX) 0.4 mg Take 1 capsule by mouth daily at bedtime. Problem List As Of Date 07/10/2023 Noted Resolved IMPOTENCE, ORGANIC ORIGN [N52.9] 08/06/2005 HLD (hyperlipidemia) [E78.5] 08/06/2005 Lumbago [M54.50] 03/06/2006 Lumbar neuritis [M54.16] 03/06/2006 Asthma [J45.909] 08/20/2007 ESOPHAGEAL REFLUX [K21.9] 08/20/2007 FAMILY HX DIABETES MELLITUS [Z83.3] 03/27/2008 Impaired fasting glucose [R73.01] 12/15/2009 Family history of esophageal cancer [Z80.0] 12/10/2011 GERD (gastroesophageal reflux disease) [K21.9] Esophagitis, unspecified [K20.90] 02/28/2012 Renal cyst [N28.1] 08/20/2017 Bilateral carotid artery stenosis [I65.23] 04/06/2020 Giant cell arteritis (HCC) [M31.6] 04/12/2021 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 Author Type: Registered Nurse Type: Progress Notes Filed: 07/10/2023 05:58 Note Text: ACM JOHNNY RN Reason for review or outreach: Medication Adherence review per request of payer Medication Adherence Review Details: Other Suspect Conditions FYI / ACTION REQUEST: RA AND INFLAMMATORY CONNECTIVE TISSUE DISEASE ICD10: M316: Other giant cell arteritis Patient identified by name and date of Summary/Findings of review: As per above Patient is adherent with meds and is already assessed and diagnosed Patient Attributed To: QAE Payer: [facility] Action Taken: Data submitted to Payer Contact made with patient: No, Chart review only. Signature: Shanna Vazquez RN [facility] 06-25-2023 Note HNO ID: [id number] Author: KAYKAY MILLER PA-C Service: ? Author Type: Physician Sustainability Manager Type: Progress Notes Filed: 06/25/2023 18:34 Note Text: This note was created using [employer]. Subjective Robbin Bolton is a 78 year old male. HPI Patient presents with a chief complaint of cough and congestion for 3 weeks. He is had some shortness of breath. He was seen on June 12 and given doxycycline and prednisone. He states that seem to help however symptoms did not go away and seem to worsen the past couple days. He does have a history of COPD and takes Advair daily. Does not have a rescue inhaler. Does not currently follow with pulmonology. He has not had a fever. No chest pain. He has had nasal congestion continuing with this as well. Review of Systems Constitutional: Negative. HENT: Positive for congestion and sinus pressure. Negative for ear pain. Respiratory: Positive for cough, shortness of breath and wheezing. Cardiovascular: Negative. Gastrointestinal: Negative. Genitourinary: Negative. Musculoskeletal: Negative. All other systems reviewed and are negative. PAST MEDICAL HISTORY Diagnosis Date GERD (gastroesophageal reflux disease) Impotence of organic origin Other and unspecified hyperlipidemia Squamous cell cancer of skin of nose 04/12/2021 Had [facility] Current Outpatient Medications Medication Sig Dispense Refill atorvastatin (LIPITOR) 20 mg tablet Take 1 tablet by mouth once daily. 90 tablet 2 omeprazole (PRILOSEC) 20 mg capsule TAKE ONE CAPSULE BY MOUTH EVERY DAY 1/2 HOUR BEFORE BREAKFAST 90 capsule 3 fluticasone-salmeterol (ADVAIR DISKUS) 100-50 mcg/dose inhaler Inhale 1 Puff as instructed twice daily. RINSE AND GARGLE MOUTH WITH WATER AFTER EACH USE. 1 Each 5 Tadalafil (CIALIS) 20 mg tab(s) Take 1 tablet by mouth once daily as needed. 10 tablet 3 tamsulosin (FLOMAX) 0.4 mg Take 1 capsule by mouth daily at bedtime. 30 capsule 5 predniSONE (DELTASONE) 10 mg tablet Take 4 tabs daily for 3 days, then 2 tabs daily for 3 days, then 1 tab daily for 3 days with food. 21 tablet 0 albuterol HFA (PROAIR HFA) 90 mcg/actuation inhaler Inhale 2 Puffs as instructed every 6 hours as needed. 1 Each 0 cefdinir (OMNICEF) 300 mg capsule Take 1 capsule by mouth two times a day for 7 days. 14 capsule 0 benzonatate (TESSALON PERLES) 100 mg capsule Take 2 capsules by mouth three times a day as needed. 30 capsule 0 No current facility-administered medications for this visit. PAST SURGICAL HISTORY Procedure Laterality Date ABDOMINAL SURGERY HX CAROTID DUPLEX BILATERAL OUTPT 04/05/2020 mild to moderate disease bilaterally, Dr. Carmenza Stovall COLONOSCOPY FLX DX W/COLLJ SPEC WHEN PFRMD 08/27/2008 Colonoscopy COLONOSCOPY FLX DX W/COLLJ SPEC WHEN PFRMD 05/26/2021 ESOPHAGOGASTRODUODENOSCOPY TRANSORAL DIAGNOSTIC 02/28/2012 EGD HERNIA REPAIR HX PAST SURGICAL HISTORY OF Right 08/22/2017 Microdiscectomy, L2-L3 RPR 1ST INGUN HRNA AGE 5 YRS/> REDUCIBLE Hernia repair, inguinal SHX COSMETIC SURGERY TONSILLECTOMY PRIMARY/SECONDARY Tonsillectomy VASCULAR SURGERY PROCEDURE FAMILY HISTORY Problem Relation Age of Onset COPD Mother asthma/smoker Heart Father heart attack Diabetes Father Cancer Father esophageal Diabetes Paternal Grandmother Social History Tobacco Use Smoking status: Never Smokeless tobacco: Never Substance Use Topics Alcohol use: Yes Comment: 4 beers a week Drug use: No Objective BP 122/80 Pulse 82 Temp 36.1 ?C (96.9 ?F) Resp 18 Wt 82.1 kg (181 lb) SpO2 94% Physical Exam Vitals reviewed. Constitutional: Appearance: Normal appearance. HENT: Head: Normocephalic and atraumatic. Right Ear: Tympanic membrane, ear canal and external ear normal. Left Ear: Tympanic membrane, ear canal and external ear normal. Nose: Congestion present. Mouth/Throat: Mouth: Mucous membranes are moist. Pharynx: Oropharynx is clear. Cardiovascular: Rate and Rhythm: Normal rate and regular rhythm. Heart sounds: Normal heart sounds. Pulmonary: Effort: Pulmonary effort is normal. No respiratory distress. Breath sounds: Wheezing present. No rhonchi. Musculoskeletal: Cervical back: Neck supple. Skin: General: Skin is warm and dry. Neurological: Mental Status: He is alert. Assessment and Plan ASSESSMENT/PLAN: 1. COPD exacerbation (HCC) - ICD9: 491.21, ICD10: J44.1 X-ray shows no pneumonia. I feel he does have a COPD exacerbation. Given prescription for Omnicef, albuterol inhaler, prednisone taper and Tessalon. Discussed if not better after this treatment would recommend follow-up with PCP at this point. Patient agreeable with plan. - XR CHEST 2V FRONTAL/LAT Kaykay Miller PA-C [facility] 06-25-2023 Note HNO ID: [id number] Author: BRENDA VENEGAS RT(R) Service: Radiology Author Type: Technologist Type: Progress Notes Filed: 06/25/2023 18:03 Note Text: Radiology Service Progress Note PATIENT NAME: Robbin Bolton DATE OF SERVICE: June 25, 2023 TIME: 5:56 PM PATIENT IDENTITY VERIFICATION COMPLETED USING TWO (2) IDENTIFIERS: Name and Date of confirmed by patient verbally. FALL SCREENING: Has the patient had 2 falls in the last year or 1 fall with injury or currently using an Ambulatory Assistive Device (Walker, Cane, Wheelchair, Crutches, etc.)? No PATIENT GENDER DATA: Male PATIENT RELEVANT IMPLANT DATA REVIEWED: Yes RADIOLOGY DEPARTMENT: General X-ray: Exam(s) Completed: Chest X-Ray PERIPHERAL IV DATA: Not applicable SIGNED BY: RT Aggie(R) June 25, 2023 5:56 PM [facility] 06-12-2023 Note HNO ID: [id number] Author: Cuong Mendez APRN.POLYMERIZATION KETTLE OPERATOR Service: ? Author Type: Nurse Practitioner Type: Progress Notes Filed: 06/12/2023 4:35 PM Note Text: Subjective HPI HPI Robbin Bolton is a 78 year old male who presents today for CC of sinus pressure, sob, cough, h/a, body aches. This started 1 week ago. Has tried otc medication for relief. Symptoms are worsened by nothing. Risk factors hx of copd. .Patient presents with: Cough: Cough, SOB. 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 Carmenza Stovall COLONOSCOPY FLX DX W/COLLJ SPEC WHEN PFRMD 08/27/2008 Colonoscopy COLONOSCOPY FLX DX W/COLLJ SPEC WHEN PFRMD 05/26/2021 ESOPHAGOGASTRODUODENOSCOPY TRANSORAL DIAGNOSTIC 02/28/2012 EGD HERNIA REPAIR HX PAST SURGICAL HISTORY OF Right 08/22/2017 Microdiscectomy, L2-L3 RPR 1ST INGUN HRNA AGE 7 YRS/> REDUCIBLE Hernia repair, inguinal SHX COSMETIC SURGERY TONSILLECTOMY PRIMARY/SECONDARY Tonsillectomy VASCULAR SURGERY PROCEDURE ALLERGIES Penicillins and Zocor [Simvastatin] MEDICATIONS atorvastatin (LIPITOR) 20 mg tablet Take 1 tablet by mouth once daily. omeprazole (PRILOSEC) 20 mg capsule TAKE ONE CAPSULE BY MOUTH EVERY DAY 1/2 HOUR BEFORE BREAKFAST fluticasone-salmeterol (ADVAIR DISKUS) 100-50 mcg/dose inhaler Inhale 1 Puff as instructed twice daily. RINSE AND GARGLE MOUTH WITH WATER AFTER EACH USE. Tadalafil (CIALIS) 20 mg tab(s) Take 1 tablet by mouth once daily as needed. tamsulosin (FLOMAX) 0.4 mg Take 1 capsule by mouth daily at bedtime. doxycycline (VIBRA-TABS) 100 mg tablet Take 1 tablet by mouth two times a day for 7 days. predniSONE (DELTASONE) 20 mg tablet Take 2 tablets by mouth once daily for 5 days. FAMILY HISTORY Problem Relation Age of Onset COPD Mother asthma/smoker Heart Father heart attack Diabetes Father Cancer Father esophageal Diabetes Paternal Grandmother Social History Tobacco Use Smoking status: Never Smokeless tobacco: Never Substance Use Topics Alcohol use: Yes Comment: 4 beers a week Drug use: No Review of Systems Constitutional: Negative for fever. HENT: Positive for congestion and sore throat. Negative for ear pain and nosebleeds. Respiratory: Positive for cough and shortness of breath. Negative for wheezing. Cardiovascular: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 Refills meloxicam (MOBIC) 15 mg tablet 30 tablet 1 Sig: Take 1 tablet by mouth once daily. With food. omeprazole (PRILOSEC) 20 mg capsule 90 capsule 3 Sig: TAKE ONE CAPSULE BY MOUTH EVERY DAY 1/2 HOUR BEFORE BREAKFAST RX INSTRUCTIONS: Patient aware RX will be sent to pharmacy. No need to notify patient. Mary Mack Pss documented in this encounter [facility] 12-06-2021 Instructions Mta Potter - 12/06/2021 8:27 AM EDT You have arthritis in great toe Recommend continued use of mobic as needed Focus on shoes with firm sole bottom or even rocker bottom to limit motion of great toe You will probably experience more pain with flip flops. If you desire a flip flop, a birkenstock sandal is probably best If pain gets severe, consider injection Surgical options, most likely fusion, would help to resolve this condition documented in this encounter [facility] 12-06-2021 History of Present illness Narrative Images from the original note were not included. Consultation requested by Dr. De La O for an opinion regarding right great toe pain. My final recommendations will be communicated back to the requesting physician by way of shared Medical record or letter to requesting physician via US mail. Initial Podiatric Office Visit: Chief Complaint: This 76 year old male who presents with chief complaint:right great toe pain HPI Patient presents to clinic for evaluation of right foot. Patient has pain in the right great toe that has been present for the past 4 months. He states the pain varies with activity. He states the longer he is on his foot or the more active he is, the more pain he has. Patient has tried oral steroid which really did not help. Patient is currently on mobic which does help Patient has xrays of right great toe to review. 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 With food. sildenafil (VIAGRA) 100 mg tablet Take 1 tablet by mouth as needed. fluticasone-salmeterol (ADVAIR DISKUS) 100-50 mcg/dose inhaler Inhale 1 Puff as instructed twice daily. RINSE AND GARGLE MOUTH WITH WATER AFTER EACH USE. omeprazole (PRILOSEC) 20 mg capsule TAKE ONE CAPSULE BY MOUTH EVERY DAY 1/2 HOUR BEFORE BREAKFAST atorvastatin (LIPITOR) 20 mg tablet Take 1 tablet by mouth once daily. mupirocin (BACTROBAN) 2 % ointment Apply 1 application to affected area three times daily. clotrimazole (LOTRIMIN, CLOTRIM) 1 % cream Apply 1 application to affected area twice daily. (Patient not taking: Reported on 12/06/2021 ) cyclobenzaprine (FLEXERIL) 10 mg tablet Take 1 tablet by mouth three times daily as needed for Muscle Spasm. (Patient not taking: Reported on 10/11/2021 ) No current facility-administered medications for this visit. ALLERGIES Allergen Reactions Penicillins Rash Zocor [Simvastatin] Intolerance Achy all over -- does fine with Lipitor PAST SURGICAL HISTORY Procedure Laterality Date ABDOMINAL SURGERY HX CAROTID DUPLEX BILATERAL OUTPT 04/05/2020 mild to moderate disease bilaterally, Dr. Carmenza Stovall COLONOSCOPY FLX DX W/COLLJ SPEC WHEN PFRMD 08/27/2008 Colonoscopy COLONOSCOPY FLX DX W/COLLJ SPEC WHEN PFRMD 05/26/2021 ESOPHAGOGASTRODUODENOSCOPY TRANSORAL DIAGNOSTIC 02/28/2012 EGD HERNIA REPAIR HX PAST SURGICAL HISTORY OF Right 08/22/2017 Microdiscectomy, L2-L3 RPR 1ST INGUN HRNA AGE 7 YRS/> REDUCIBLE Hernia repair, inguinal SHX COSMETIC SURGERY TONSILLECTOMY PRIMARY/SECONDARY <AGE 14 Tonsillectomy VASCULAR SURGERY PROCEDURE FAMILY HISTORY Problem Relation Age of Onset COPD Mother asthma/smoker Heart Father heart attack Diabetes Father Cancer Father esophageal Diabetes Paternal Grandmother Social History Tobacco Use Smoking status: Never Smoker Smokeless tobacco: Never Used Substance Use Topics Alcohol use: Yes Comment: 4 beers a week Drug use: No REVIEW OF SYSTEMS GENERAL: Negative for Malaise, significant weight loss, fever RESPIRATORY: Negative for cough, wheezing and shortness of breath CARDIOVASCULAR: Negative for chest pain, leg swelling and palpitations GI: Negative for abdominal discomfort, blood in stools or black stools and change in bowel habits : Negative for dysuria, frequency and incontinence MUSCULOSKELETAL: Negative for joint pain or swelling, back pain, and muscle pain. SKIN: Negative for lesions, rash, and itching. HEMATOLOGY/LYMPHOLOGY Negative for prolonged bleeding, bruising easily, and swollen nodes. ENDOCRINE: Negative for cold or heat intolerance, polyuria, polydipsia and goiter. NEURO: negative Physical Exam: Constitutional: Pt is a well developed 76 year old male who is alert, oriented and cooperative Eyes: Following during examination. No redness or drainage. Respiratory: RR normal and nonlabored. Even breathing. No evidence of distress or shortness of breath. Psychology: Patient is engaged during conversation. Normal affect and mood. Does not appear depressed or anxious during encounter. Vascular: Dorsalis pedis and posterior tibial pulses palpable as b/l Capillary Fill time < 5 seconds to digits 1-5 b/l Skin temperature warm to warm proximal to distal b/l Hair growth present to digits Neurological: intact light touch/epicritic sensation b/l intact protective sensation no significant neurological deficits Dermatological: Nails 1-5 b/l appear normal. Webspaces clean and dry 1-4 b/l. Skin appears well hydrated and supple. good color, texture, turgor. No open lesions present. No callosities present. Musculoskeletal/Orthopaedic: Patient has pain to palpation of right 1st mtpj Foot type is neutral structurally AJ ROM is full with knee extended and flexed 1st MPJ is decreased when loaded and + pain or crepitus are noted with ROM. MTJ, STJ are full and free of pain and crepitus. +5/5 muscle strength dorsiflexion, plantarflexion, inversion, eversion b/l Radiographs: 3 views great toe reviewed December 06, 2021: I have personally reviewed and interpreted these XR myself: Arthritis of right 1st mtpj ASSESSMENT: (M20.5X1) Acquired hallux limitus of right foot (primary encounter diagnosis) (M79.671) Foot pain, right PLAN: 1. History and physical examination performed. 2. XR reviewed with patient and interpreted today 3. Patient has arthritis (hallux limitus) of right great toe 4. Recommend continued use of mobic 5. rx for inserts with leon extension to limit motion of great toe. 6. Discussed shoe gear optiosn to limit motion in great toe 7. Steroid injection was discussed if pain were to increase 8. Surgical options are available. He would likely require fusion. 9. If pain fails to improve, call to discuss surgical options. Mat Potter DPM Podiatry [address] [facility] [address] Dept: [phone] Dept AMB ROOMING INTAKE FLOWSHEET DATA Risk Screening Do you have concerns about personal safety or safety in the home?: No Pain Pain Level: 4 (4 in office sometime up to 8-9) Pain Location: Foot-Right Description: Throbbing, Sharp Duration Amount of Time: 4 Duration Units: Months Frequency: Intermittent Intervention/Comfort measure: Medication, Reposition, Relaxation (meloxicam) Patient presents with: Right Foot - New, Pain Princess Bowens LPN documented in this encounter [facility] 11-16-2021 Miscellaneous Notes 3rd attempt to reach patient. LM for patient to return office call and schedule in Podi. 2nd attempt to reach patient. LM for patient to schedule consult in Podiatry. 1st attempt. Message left for patient to contact office to schedule Podiatry consult. Script send. Please help schedule. Louise De La O APRN.CNP TC to pt, notified of provider response. He verbalized understanding. Pt agreeable to trying meloxicam. Please send rx to [facility]. Pt also agreeable to Podiatry consult. Consult pending. Please review, file and forward to scheduling for appt. Manny Membreno LPN We can try a different anti-inflammatory, like meloxicam. I don't think this is actually gout, because his labwork came back okay. I think this is a flare of arthritis. He would probably benefit from seeing a propulsion motor and generator repairer. Please let me know if he would like me to send in meloxicam. If so, he shouldn't use other antiinflammatories (ie ibuprofen) while on the meloxicam. Please let me know if I can go ahead and place the referral to podiatry. Louise De La O APRN.BLUE Patient calling had completed prednisone rx for his gout, he said did not really do anything for his pain and swelling. Patient said the right great toe and ball of foot is more swollen and painful again. Patient said he goes on vacation Saturday to [facility], asking if there is another medication he can try? Patient uses [facility] for his pharmacy. Please advise documented in this encounter [facility] 10-16-2021 Miscellaneous Notes Noted. Louise De La O APRN.CNP Patient returned call and went over results, notes from Louise De La O MANAGER DATABASE with understanding. He has only just taken the first dose of the prednisone rx. Left message for patient to call office back Erlinda Ayala Ma Can please let patient know that I received his labwork. His uric acid and inflammatory markers were normal. That means that this is likely just a flare of arthritic, but not specifically gout. Has the prednisone helped? His other labs were normal/stable. Louise De La O APRN.BLUE documented in this encounter [facility] 10-11-2021 Instructions Louise De La O APRN.BLUE - 10/11/2021 12:17 PM EDT 1. Start the prednisone. The prednisone taper will be 4 tablets for 3 days; 3 tablets for 3 days; 2 tablets for 3 days; then 1 tablet for 3 days. Please do no use other anti-inflammatories (like ibuprofen, aleve, naproxen, etc) while you are on this medication. 2. Get the xray. 3. Get the labwork. Gout What is gout? Gout is a disease usually caused by having too much uric acid in your body. Too much uric acid may not cause symptoms for years, but after a time it usually causes painful joint inflammation (arthritis). The most common site of inflammation is the joint between the foot and the big toe. Later attacks often affect other joints of the foot and leg. Less often, the arms and hands are affected. In addition to the arthritis, gout causes the formation of tophi. Tophi are lumpy deposits of uric acid crystals just under the skin. Common places for tophi to develop are in the outer edge of the ear, on or near the elbow, over the fingers and toes, and around the Achilles tendon in the ankle. Gout can also cause kidney stones made of uric acid. Most people who have gout are middle-aged men, but it can occur at any age. Only 5 to 10% of cases of gout occur in women, most often after menopause. How does it occur? Gout usually occurs because too much uric acid is in your joints. Uric acid comes from the breakdown of substances called purines. Purines are found in all of your body's tissues. They are also in many foods. Normally, uric acid dissolves in the blood and passes through the kidneys and out of the body in urine. If the levels of uric acid build up in the blood, sharp uric acid crystals may form in the joints. The crystals cause pain and swelling. You may have too much uric acid in your joints when your kidney does not get rid of enough uric acid or when your body makes too much uric acid. Most cases of gout are caused by poor elimination of uric acid by the kidneys, but it can be hard to know why this is happening. The specific problem with the kidney is usually never found. Some people inherit a tendency to make too much uric acid. Others may make too much uric acid because they have a disease such as cancer or certain types of red blood cell disorders. A diet high in alcoholic drinks and purine-rich foods (such as meats) can also cause your body to make too much uric acid. Uric acid levels in men start to go up after puberty. Women's uric acid levels usually do not go up until after menopause. For this reason women are protected from gout until several years after menopause. The uric acid levels have to be high for many years before gout develops. Men with gout usually have their first attack when they are middle-aged. Certain conditions, such as dehydration, can cause excess levels of uric acid. Diuretic medicine (also called water pills) can increase levels of uric acid. Other medicines can also affect the level of uric acid in the blood. It is important to make sure your health care provider knows all the medicines you are using, both prescription and nonprescription. People who have recently had a serious illness or surgery have an increased chance of having an attack of gout. Some people have gouty arthritis even though they have normal uric acid levels. What are the symptoms? Some people have high uric acid blood levels for years and never have any symptoms. Only 10 to 20% of people with high levels develop the symptoms of: sudden, severe pain, especially of just one joint at a time redness swelling. The sudden attacks are sometimes related to physical illness, trauma, or excessive alcohol use. The symptoms may last for days to weeks. The arthritis usually occurs before tophi or kidney stones develop. The tophi do not cause any symptoms unless they open and drain. They are often not painful. Depending on their location, they may limit the movement of joints. The symptoms of uric acid stones are like those of other kidney stones. They can cause severe abdominal pain and sometimes nausea, vomiting, fever, or blood in the urine. How is it diagnosed? Your health care provider will suspect that you have gout if: Your first toe joint is inflamed. You have a blood test that shows a high level of uric acid in your blood. You are developing tophi. You start taking the drug colchicine and your symptoms of arthritis improve. (Colchicine, an anti-inflammatory drug, is effective only in gouty-type arthritis.) To confirm the diagnosis, your provider may take a sample of fluid from the affected joint or joints and send it to the lab for tests. If you have uric acid crystals in the fluid, you have gout. How is it treated? Usually, if you have high uric acid levels but no symptoms, you will not need treatment. In special cases (for example, if you have a strong family history of gouty arthritis or kidney stones), you may be treated for gout even though you do not have any symptoms. If you have symptoms of gout, the goals of treatment are: Stop the pain of gouty arthritis or kidney stones. Try to prevent the recurrence of these problems by controlling the uric acid levels. Prevent serious complications such as kidney damage. Treatment of the arthritis first involves the use of anti-inflammatory medicines, such as: indomethacin ibuprofen or naproxen corticosteroid drugs, such as prednisone colchicine. Aspirin is not usually recommended because it may keep the urine from taking the uric acid out of the body. Anti-inflammatory medicines are sometimes taken daily to prevent recurrent attacks of gouty arthritis. If the gouty arthritis becomes a frequent problem, allopurinol and probenecid may also be prescribed to prevent damaging deposits of uric acid in the joints. How long will the effects last? The sooner treatment is started, the sooner the symptoms stop, which may be within 24 to 48 hours. If gout is not treated, it could last a few days to several weeks. A second attack may occur, but usually not for 6 months to 2 years. In other cases another attack may not occur until many years later, or never. How can I help prevent gout? There is no sure way to prevent gout. However, you can take these steps to lessen the chance that you will have high uric acid levels: Eat a diet low in purines and do not overindulge in alcohol. Purine-containing foods include organ meats (such as sweetbreads, liver, and kidney), shrimp, anchovies, sardines, and dried legumes. Your consumption of alcoholic beverages should not exceed 2 ounces a day. Drink lots of fluids. Published by [employer]. This content is reviewed periodically and is subject to change as new health information becomes available. The information is intended to inform and educate and is not a replacement for medical evaluation, advice, diagnosis or treatment by a healthcare professional. Developed by [employer]. Copyright 2005 [employer] and/or one of its subsidiaries. All Rights Reserved. Special Instructions: Copyright [employer] 2006 Adult Health Advisor documented in this encounter [facility] 10-11-2021 History of Present illness Narrative This is a 76 year old male who presents today with: Patient presents with: Toe Pain (Big): right toe HISTORY OF PRESENT ILLNESS: Robbin Bolton is a 76 year old male. Patient presents with: Toe Pain (Big): right toe Patient presents today with complaints of right great toe pain for the last 5 weeks. Has noticed some redness and swelling of the right great toe. Rates pain anywhere from a 7-8 on the pain scale. It can be intermittent in nature. The discomfort is causing him to limp. He has no history of gout. No injuries to the toe. No history of kidney stones. Does drink 1-2 beers every other day. Denies eating organ meats. Not on any diuretics. He is using 600 mg of ibuprofen and 1 Tylenol to help with pain. 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 Carmenza Stovall COLONOSCOPY FLX DX W/COLLJ SPEC WHEN PFRMD 08/27/2008 Colonoscopy COLONOSCOPY FLX DX W/COLLJ SPEC WHEN PFRMD 05/26/2021 ESOPHAGOGASTRODUODENOSCOPY TRANSORAL DIAGNOSTIC 02/28/2012 EGD HERNIA REPAIR HX PAST SURGICAL HISTORY OF Right 08/22/2017 Microdiscectomy, L2-L3 RPR 1ST INGUN HRNA AGE 7 YRS/> REDUCIBLE Hernia repair, inguinal SHX COSMETIC SURGERY TONSILLECTOMY PRIMARY/SECONDARY <AGE 14 Tonsillectomy VASCULAR SURGERY PROCEDURE ALLERGIES Penicillins and Zocor [Simvastatin] MEDICATIONS Current Outpatient Medications Medication Sig sildenafil (VIAGRA) 100 mg tablet Take 1 tablet by mouth as needed. fluticasone-salmeterol (ADVAIR DISKUS) 100-50 mcg/dose inhaler Inhale 1 Puff as instructed twice daily. RINSE AND GARGLE MOUTH WITH WATER AFTER EACH USE. omeprazole (PRILOSEC) 20 mg capsule TAKE ONE CAPSULE BY MOUTH EVERY DAY 1/2 HOUR BEFORE BREAKFAST atorvastatin (LIPITOR) 20 mg tablet Take 1 tablet by mouth once daily. clotrimazole (LOTRIMIN, CLOTRIM) 1 % cream Apply 1 application to affected area twice daily. mupirocin (BACTROBAN) 2 % ointment Apply 1 application to affected area three times daily. (Patient not taking: Reported on 10/11/2021 ) cyclobenzaprine (FLEXERIL) 10 mg tablet Take 1 tablet by mouth three times daily as needed for Muscle Spasm. (Patient not taking: Reported on 10/11/2021 ) No current facility-administered medications for this visit. FAMILY HISTORY Problem Relation Age of Onset COPD Mother asthma/smoker Heart Father heart attack Diabetes Father Cancer Father esophageal Diabetes Paternal Grandmother Social History Tobacco Use Smoking status: Never Smoker Smokeless tobacco: Never Used Substance Use Topics Alcohol use: Yes Comment: 4 beers a week Drug use: No EXAM: BP 102/72 (BP Site: Left Arm, BP Position: Sitting, BP Cuff Size: Large Adult) Pulse 68 Temp 36.1 C (97 F) Resp 18 Wt 77.6 kg (171 lb) PHYSICAL EXAM: General Appearance: Well appearing, alert, in no acute distress, well-hydrated, well nourished.. Skin: Skin color, texture, turgor normal, no suspicious rashes or lesions. Head: Normocephalic, no masses, lesions, tenderness or abnormalities. Eyes: Anicteric sclera. Pupils are equally round and reactive to light. Extraocular movements are intact. . Lungs: Lungs clear to auscultation. No wheezing, rhonchi, rales.. Heart: RRR without murmur, gallop, or rubs. No ectopy. Extremities: Redness, swelling, and increased warmth noted at the base of the right great toe. Limited range of motion. Good capillary refill. Peripheral Pulses: Normal dp/pt pulses. Neurologic: Gait normal. ASSESSMENT/PLAN: 1. Acute gout involving toe of right foot, unspecified cause - ICD9: 274.01, ICD10: M10.9 (primary diagnosis) Suspect gout flare. This is patient's first episode. We will go ahead and get x-ray and labs. Start treatment with prednisone. Let provider know if no better or worsening. - XR TOE AP/LAT/OBL RIGHT - URIC ACID BLOOD - SED RATE WESTERGREN - C-REACTIVE PROTEIN (CRP) - PREDNISONE 10 MG TABLET 2. Prediabetes - ICD9: 790.29, ICD10: R73.03 - COMP METABOLIC PANEL - HGB A1C 3. Mixed hyperlipidemia - ICD9: 272.2, ICD10: E78.2 - COMP METABOLIC PANEL - LIPID PANEL, NONFASTING Discussed treatment plan and patient voices understanding. Patient's questions answered appropriately. Medications and potential side effects were discussed and patient voices understanding. Return to the office as scheduled or as needed for worsening/no improvement. Louise De La O APRN.POLYMERIZATION KETTLE OPERATOR This note was partially generated using [employer] recognition system. Note was reviewed for accuracy. There may be minor misspellings or grammar miscues with [employer] voice recognition. documented in this encounter [facility]* Diagnosis Acquired hallux limitus of right foot- Primary Foot pain, right Pain in limb documented in this encounter [facility] note* Diagnosis Foot pain, right- Primary Pain in limb documented in this encounter [facility] note* Diagnosis Foot pain, right Pain in limb documented in this encounter [facility] note* Diagnosis Impotence of organic origin documented in this encounter [facility] note* Diagnosis Mixed hyperlipidemia documented in this encounter [facility] note* Diagnosis Foot pain, right Pain in limb documented in this encounter [facility] note* Diagnosis Abrasion of left hand, initial encounter- Primary documented in this encounter [facility] note* Diagnosis Mixed hyperlipidemia- Primary Buttock pain Mylagia and myositis, unspecified Prediabetes Other abnormal glucose ED (erectile dysfunction) of organic origin Impotence of organic origin documented in this encounter [facility] note* Diagnosis Mild intermittent asthma without complication Unspecified asthma documented in this encounter [facility] note* Diagnosis Mixed hyperlipidemia documented in this encounter [facility] for referral (narrative)* Diagnostic Procedure Only (Routine) - Closed Specialty Diagnoses / Procedures Referred By Juanis chilel Referred To Contact XR IMAGING Diagnoses Acute gout involving toe of right foot, unspecified cause Procedures XR TOE AP/LAT/OBL RIGHT RADEX TOE MINIMUM 2 VIEWS Louise De La O APRN.POLYMERIZATION KETTLE OPERATOR [address] [place] [address] Xr Imaging Referral ID Status Reason Start Date Expiration Date V isits Requested Visits Authorized [id number] Closed Auto-Generate d Referral 10/11/2021 06/09/2022 1 1 [facility] Advance Directives Documents on File Type Date Recorded Patient Manager Culture Expl anation Advance Directive(s) 05/26/2021 9:34 AM Advance Directive(s) 05/17/2021 9:03 AM Documents on File Type Date Recorded Patient Manager Culture Expl anation Advance Directive(s) 05/26/2021 9:34 AM Advance Directive(s) 05/17/2021 9:03 AM Reason for Referral Specialty Diagnoses / Procedures Referred By Juanis t Referred To Contact Podiatry Diagnoses Foot pain, right Procedures CONSULT TO PODIATRY OFFICE/OUTPATIENT NEW HIGH MDM 60-74 MINUTES Louise De La O APRN.POLYMERIZATION KETTLE OPERATOR [address] [facility] [place] [address] Referral ID Status Reason Start Date Expiration Date V isits Requested Visits Authorized [id number] Closed PCP Requested Referral 10/31/2021 10/31/2022 1 1 Summary Purpose Family History No Family History Records Found Additional Source Comments Source Comments (unrecognize d section and content) In the event this informatio n is protected by the Federal Confidentiality of Alcohol and Drug Abuse Patient Records regulations: The Federal rules restrict any use of the information to criminally investigate or prosecute any alcohol or drug abuse patient.[facility] the event this information is protected by the Federal Confidentiality of Alcohol and Drug Abuse Patient Records regulations: The Federal rules restrict any use of the information to criminally investigate or prosecute any alcohol or drug abuse patient.[facility] the event this information is protected by the Federal Confidentiality of Alcohol and Drug Abuse Patient Records regulations: The Federal rules restrict any use of the information to criminally investigate or prosecute any alcohol or drug abuse patient.[facility] the event this information is protected by the Federal Confidentiality of Alcohol and Drug Abuse Patient Records regulations: The Federal rules restrict any use of the information to criminally investigate or prosecute any alcohol or drug abuse patient.[facility] the event this information is protected by the Federal Confidentiality of Alcohol and Drug Abuse Patient Records regulations: The Federal rules restrict any use of the information to criminally investigate or prosecute any alcohol or drug abuse patient.[facility] the event this information is protected by the Federal Confidentiality of Alcohol and Drug Abuse Patient Records regulations: The Federal rules restrict any use of the information to criminally investigate or prosecute any alcohol or drug abuse patient.[facility] the event this information is protected by the Federal Confidentiality of Alcohol and Drug Abuse Patient Records regulations: The Federal rules restrict any use of the information to criminally investigate or prosecute any alcohol or drug abuse patient.[facility] the event this information is protected by the Federal Confidentiality of Alcohol and Drug Abuse Patient Records regulations: The Federal rules restrict any use of the information to criminally investigate or prosecute any alcohol or drug abuse patient.[facility] the event this information is protected by the Federal Confidentiality of Alcohol and Drug Abuse Patient Records regulations: The Federal rules restrict any use of the information to criminally investigate or prosecute any alcohol or drug abuse patient.[facility] the event this information is protected by the Federal Confidentiality of Alcohol and Drug Abuse Patient Records regulations: The Federal rules restrict any use of the information to criminally investigate or prosecute any alcohol or drug abuse patient.[facility] the event this information is protected by the Federal Confidentiality of Alcohol and Drug Abuse Patient Records regulations: The Federal rules restrict any use of the information to criminally investigate or prosecute any alcohol or drug abuse patient.[facility] the event this information is protected by the Federal Confidentiality of Alcohol and Drug Abuse Patient Records regulations: The Federal rules restrict any use of the information to criminally investigate or prosecute any alcohol or drug abuse patient.[facility] the event this information is protected by the Federal Confidentiality of Alcohol and Drug Abuse Patient Records regulations: The Federal rules restrict any use of the information to criminally investigate or prosecute any alcohol or drug abuse patient.[facility] the event this information is protected by the Federal Confidentiality of Alcohol and Drug Abuse Patient Records regulations: The Federal rules restrict any use of the information to criminally investigate or prosecute any alcohol or drug abuse patient.[facility] the event this information is protected by the Federal Confidentiality of Alcohol and Drug Abuse Patient Records regulations: The Federal rules restrict any use of the information to criminally investigate or prosecute any alcohol or drug abuse patient.[facility] the event this information is protected by the Federal Confidentiality of Alcohol and Drug Abuse Patient Records regulations: The Federal rules restrict any use of the information to criminally investigate or prosecute any alcohol or drug abuse patient.[facility] Reason for Visit (unrecogniz ed section and content) Specialty Diagnoses / Procedures Referred By Contac t Referred To Contact Family Practice / FAMILY MEDICINE Diagnoses Pain right great toe / pt requested date Procedures 4C EST Self Louise De La O APRN.POLYMERIZATION KETTLE OPERATOR [address] [place] [address] Referral ID Status Reason Start Date Expiration Date Visits Re quested Visits Authorized [id number] Closed 10/11/2021 06/09/2022 1 1 Reason Comments Results Reason Comments New Pain Specialty Diagnoses / Procedures Referred By Contac t Referred To Contact Podiatry Diagnoses Foot pain, right Procedures CONSULT TO PODIATRY OFFICE/OUTPATIENT NEW HIGH MDM 60-74 MINUTES Louise De La O APRN.POLYMERIZATION KETTLE OPERATOR [address] [place] [address] Referral ID Status Reason Start Date Expiration Date V isits Requested Visits Authorized [id number] Closed PCP Requested Referral 10/31/2021 10/31/2022 1 1 Reason Comments Patient Question Reason Onset Date Comments Refill Request 01/29/2022 Reason Onset Date Comments Refill Request 04/23/2022 Reason Onset Date Comments Refill Request 05/10/2022 Reason Comments Refill Request Reason Comments Wound Check Wound on left hand x 1 week Reason Comments Recheck Reason Onset Date Comments Refill Request 01/21/2023 Reason Onset Date Comments Population Health Navigation Outreach 08/12/2023 [facility] Care Teams (unrecognized sec tion and content) Maintenance Controller Relationship Specialty Start Date End Date Daniela Dunn MD [address] [facility] [place] [address] PCP - General Family Practice 08/11/12 Maintenance Controller Relationship Specialty Start Date End Date Daniela Dunn MD [address] [facility] [place] [address] PCP - General Family Practice 08/11/12 Maintenance Controller Relationship Specialty Start Date End Date Daniela Dunn MD [address] [facility] [place] [address] PCP - General Family Practice 08/11/12 Maintenance Controller Relationship Specialty Start Date End Date Daniela Dunn MD [address] [facility] [place] [address] PCP - General Family Practice 08/11/12 Maintenance Controller Relationship Specialty Start Date End Date Daniela Dunn MD [address] [facility] [place] [address] PCP - General Family Medicine 08/11/12 Maintenance Controller Relationship Specialty Start Date End Date Daniela Dunn MD [address] [facility] [place] [address] PCP - General Family Medicine 08/11/12 Maintenance Controller Relationship Specialty Start Date End Date Daniela Dunn MD [address] [facility] [place] [address] PCP - General Family Medicine 08/11/12 Maintenance Controller Relationship Specialty Start Date End Date Daniela Dunn MD [address] [place] [address] PCP - General Family Medicine 08/11/12 Maintenance Controller Relationship Specialty Start Date End Date Daniela Dunn MD [address] [place] [address] PCP - General Family Medicine 08/11/12 Maintenance Controller Relationship Specialty Start Date End Date Daniela Dunn MD [address] [place], [place] [id number] PCP - General Family Medicine 08/11/12 (unrecognized sect ion and content) No Status Records Found INFORMATION SOURCE (unrecogn ized section and content) FOR RECORDS PERTAINING TO PATIENTS WHO ARE OR HAVE BEEN ENROLLED IN A CHEMICAL DEPENDENCY/SUBSTANCEABUSE PROGRAM, SOME INFORMATION MAY BE OMITTED. This clinical summary was aggregated from multiple sources. Caution should be exercised in using it in the provision of clinical care. This summary normalizes information from multiple sources, and as a consequence, information in this document may materially change the coding, format and clinical context of patient data. In addition, data may be omitted in some cases. CLINICAL DECISIONS SHOULD BE BASED ON THE PRIMARY CLINICAL RECORDS. [facility] provides no warranty or guarantee of the accuracy or completeness of information in this document.
== END | disposition home or self-care (01) ==
PROVIDERS: PCP Family Medicine; Referring Provider Surgery; Visit Provider Surgery
DX: I65.22 Occlusion and stenosis of left carotid artery (principal)
CPT/HCPCS: 93880